=== PATIENT | female | born 1995 | race Caucasian/White ===

== ENCOUNTER 2020-08-19 03:09 | Emergency (ER) | payer BC ==
[~2020-08-19] VITALS: Ht 157.5 cm; Wt 60.0 kg
[~2020-08-19 03:09] MED LIST: ASPI325T17 PO; MELA5TAB14 PO; NICO-485 TD; OXYC5TAB3 PO
--- NOTE | 2020-08-19 03:15 | NUR ---
THIS IS A 25Y F BIB EMS FROM HOME FOR AUDITORY/ VISUAL HALLUCINATIONS PER EMS REPORT. PT ALSO C/O ABD PAIN. SHE ALSO C/O HIP PAIN AND PASSING OUT, PT ABLE TO FOLLOW COMMANDS WHILE CLOSING EYES AND SAYING "I'M PASSING OUT, I'M HAVING A SEIZURE" PT RESTING ON LEXI ORTIZ AT BEDSIDE FOR EVAL AT THIS TIME
--- NOTE | 2020-08-19 03:37 | NUR ---
PT UP TO RESTROOM FOR URINE SAMPLE AT THIS TIME. STEADY GAIT WITH USE OF CRUTCH.
--- NOTE | 2020-08-19 03:43 | NUR ---
PT BACK TO BED UNABLE TO PRODUCE URINE AT THIS TIME
[2020-08-19 04:03] LABS: BASOPHILS % (AUTO) 0 % (0-1); EOSINOPHILS % (AUTO) 0 % (1-7); LYMPHOCYTES % (AUTO) 13 % (22-44); MEAN CORPUSCULAR HEMOGLOBIN 30.6 pg (27.0-34.8); MEAN CORPUSCULAR HGB CONC 33.9 g/dL (32.4-35.8); MEAN PLATELET VOLUME 8.6 fL (7.4-10.4); MONOCYTES % (AUTO) 9 % (2-9); NEUTROPHILS % (AUTO) 78 % (42-75); PLATELET COUNT 284 x10^3/uL (130-400); RED BLOOD COUNT 3.88 x10^6/uL (3.82-5.3); RED CELL DISTRIBUTION WIDTH 13.7 % (9.6-15.2)
[2020-08-19 04:05] LABS: MD NO
[2020-08-19 04:12] LABS: ALANINE AMINOTRANSFERASE 29 U/L (12-78); ALBUMIN 4.1 g/dL (3.4-5.0); ANION GAP 5 mmol/L (5-15); CHLORIDE 107 mmol/L (98-107); CREATININE 0.73 mg/dL (0.55-1.02)
[2020-08-19 04:23] LABS: ALKALINE PHOSPHATASE 84 U/L (45-117); BILIRUBIN,TOTAL 0.5 mg/dL (0.2-1.0); TOTAL PROTEIN 7.4 g/dL (6.4-8.2)
--- NOTE | 2020-08-19 04:39 | NUR ---
Report rec'd from Rachael COPPOLA Patient ambulated to and from the restroom, con't to complain of abdominal pain. Patient was able to given urine sample. Currently geting changed into hospital gown. Belonging locked up in cabinet.
[2020-08-19 04:46] LABS: SALICYLATE LEVEL < 1.7 mg/dL (2.8-20.0)
[2020-08-19] MEDS ORDERED: LORazepam 1MG TABLET ONE (04:50)
--- NOTE | 2020-08-19 04:53 | NUR ---
All of patient belonging placed in cabinet, along with crutch. Patient noted to be hyperventaling. Encouraged patient to slow breathing and consentrate on breathing. Medicated per MAR. Patient denies SI, HI or hearing/seeing hallucinations. Patient states "I came because I just needed a safe placed to stay."
[2020-08-19 04:54] LABS: FREE T4 (FREE THYROXINE) 1.44 ng/dL (0.76-1.46)
[2020-08-19] MEDS ORDERED: LORazepam 1MG TABLET PO ONE (05:00)
[2020-08-19 05:03] LABS: MICROSCOPIC INDICATED
[2020-08-19 05:04] VITALS: BP 129/82
[2020-08-19 05:15] LABS: AMPHETAMINE SCREEN, URINE Negative (Negative); BARBITURATE SCREEN, URINE Negative (Negative); BENZODIAZEPINE SCREEN, URINE Negative (Negative); CANNABINOID SCREEN, URINE Positive (Negative); COCAINE SCREEN, URINE Negative (Negative); METHADONE SCREEN, URINE Negative (Negative); OPIATE SCREEN, URINE Negative (Negative)
[2020-08-19] MEDS ORDERED: POTASSIUM CHLORIDE 20 MEQ TAB.ER.PRT PO ONE (06:30)
--- NOTE | 2020-08-19 06:30 | NUR ---
Sup RN: Per [facility] david Fabian they'd be happy to accept patient however they currently do not have a room. They may or may not have room for the patient during dayshift if they get a discharge if a "few things fall into place". Per Caren, okay to send out if need be. SARIAH Lau will fax to [place] [facility] facilities to attempt to place patient.
--- NOTE | 2020-08-19 06:40 | NUR ---
Packet faxed to [facility], [facility], [facility], [facility]
--- NOTE | 2020-08-19 07:30 | NUR ---
PT ACCEPTED BY AT [facility], WILL ACCEPT ANY TIME.
[2020-08-19] MEDS ORDERED: POTASSIUM CHLORIDE 20 MEQ TAB.ER.PRT ONE (08:38)
--- NOTE | 2020-08-19 09:15 | NUR ---
REPORT GIVEN TO RECIEVING ABDON MEADOWS AT [facility]. AWAITING [facility] FOR TRANSPORT. PT GIVEN MEAL TRAY, MEDICATED PER MAR, NAD NOTED, SI PRECAUTIONS OBSERVED
--- NOTE | 2020-08-19 10:36 | NUR ---
elmo mother [phone]
== END 2020-08-19 10:48 ==
LOC: ED 03:41
DX: F31.9 Bipolar disorder, unspecified (principal); F12.10 Cannabis abuse, uncomplicated; F17.200 Nicotine dependence, unspecified, uncomplicated; Z72.9 Problem related to lifestyle, unspecified; Z96.642 Presence of left artificial hip joint
CPT/HCPCS: 36415; 80053; 80299; 80307; 80320; 80329; 81001; 84439; 84443; 84481; 84703; 85025; 87086; 99285; G0480

== ENCOUNTER 2020-09-26 03:26 | Emergency (ER) | payer BC ==
[~2020-09-26] VITALS: Ht 154.9 cm; Wt 58.6 kg
[~2020-09-26 03:26] MED LIST changes: -OXYC5TAB3 PO; +OXYC5TAB98 PO
--- NOTE | 2020-09-26 03:36 | NUR ---
ERP AT BEDSIDE FOR ASSESSMENT
--- NOTE | 2020-09-26 03:37 | NUR ---
THIS IS A 25Y F BIB EMS FROM HOME FOR ANXIETY PT RECENTLY STARTED TAKING PLIPERIDONE AND SINCE THEN HAS BEEN EXPERIENCING ANXIETY ABOUT LIFE IN GENERAL. PT STS SHE DID NOT CONTACT HER PROVIDER ABOUT THE ADVERSE REACTIONS THAT SHE IS HAVING. PT IS A/O UPON ARRIVAL TO ER AND INTERACTING WITH STAFF APPROPRIATELY. PT CONNECTED TO ALL MONITORING CHANGED INTO HOSPITAL GOWN (AT PT REQUEST) AT THIS TIME
[2020-09-26] MEDS ORDERED: LORazepam 0.5MG TABLET ONE (03:45)
--- NOTE | 2020-09-26 03:48 | NUR ---
ATTEMPTED TO MEDICATE PT, PT ASLEEP UPON RN RETURN. PER DR JORDAN HOLD [facility] AT THIS TIME
[2020-09-26] MEDS ORDERED: LORazepam 0.5MG TABLET PO ONE (04:00)
--- NOTE | 2020-09-26 04:57 | NUR ---
PT RESTING ON LEXI ZEPEDA AWARE OF POC AND VERBALIZES UNDERSTANDING
--- NOTE | 2020-09-26 05:00 | NUR ---
PT SLEEPING ON AND OFF, NOW REQ PAIN MEDS. ERP TO BE UPDATED
--- NOTE | 2020-09-26 05:12 | NUR ---
Kayleigh zarco in [facility] - 09/26/20 at 0544 by [email or web address] PT BACK FROM CT
[2020-09-26] MEDS ORDERED: KETOROLAC 30 MG/1 ML IM ONE (05:30)
[2020-09-26] MEDS ORDERED: METHOCARBAMOL 750 MG TABLET PO ONE (05:30)
[2020-09-26] MEDS ORDERED: METHOCARBAMOL 750 MG TABLET ONE (05:35)
[2020-09-26] MEDS ORDERED: KETOROLAC 60 MG/2 ML ONE (05:35)
[2020-09-26 05:43] VITALS: BP 130/78
--- NOTE | 2020-09-26 05:44 | NUR ---
PT MEDICATED PER OCT, ON PHONE WITH MOM FOR SAFE DC HOME AT THIS TIME
--- NOTE | 2020-09-26 05:51 | NUR ---
Patient/Caregiver given discharge instructions and they have confirmed that they understand the instructions. Patient ambulatory with steady gait.
== END 2020-09-26 06:04 | disposition home or self-care (01) ==
LOC: ED 04:44
DX: S39.012A Strain of muscle, fascia and tendon of lower back, initial encounter (principal); F41.1 Generalized anxiety disorder; G89.11 Acute pain due to trauma; F17.200 Nicotine dependence, unspecified, uncomplicated; Z96.649 Presence of unspecified artificial hip joint; W00.0XXA Fall on same level due to ice and snow, initial encounter; Y93.89 Activity, other specified; Y92.89 Other specified places as the place of occurrence of the external cause; Y99.8 Other external cause status
CPT/HCPCS: 72110; 96372; 99283; J1885